=== PATIENT | male | born 1955 | race Caucasian/White ===

== ENCOUNTER 2019-06-20 08:30 | Inpatient (IN) | payer MEDICAID ==
[~2019-06-20] VITALS: Ht 167.6 cm; Wt 87.1 kg
--- NOTE | 2019-06-20 08:30 | NUR ---
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
--- NOTE | 2019-06-20 08:30 | NUR ---
IV LINE ESTABLISHED BLOOD DRAWN AND SENT TO LAB.
--- NOTE | 2019-06-20 08:35 | NUR ---
SEEN AND EXAMINED BY .
[2019-06-20] MEDS ORDERED: ACETAMINOPHEN ES 500 MG TABLET ONE (08:38)
[2019-06-20] MEDS ORDERED: ACETAMINOPHEN ES 500 MG TABLET PO ONE (09:00)
--- NOTE | 2019-06-20 09:00 | NUR ---
CALLED LAB FOR COVID SWAB KIT.
--- NOTE | 2019-06-20 09:02 | NUR ---
ARCHITECTURAL DRAFTSMAN AT BEDSIDE FOR XRAY.
[2019-06-20 09:03] LABS: BASOPHILS # (AUTO) 0.1 /CMM (0.0-0.2); BASOPHILS % (AUTO) 0.5 % (0.0-2.0); EOSINOPHILS % (AUTO) 3.1 % (0.0-6.0); HEMATOCRIT 48 % (39-51); HEMOGLOBIN 16.5 g/dL (13.5-17.5); LYMPHOCYTES # (AUTO) 2.5 /CMM (0.8-4.8); LYMPHOCYTES % (AUTO) 18.2 % (20.0-44.0); MEAN CORPUSCULAR HGB CONC 34 g/dl (31.0-36.0); MEAN CORPUSCULAR VOLUME 91 fL (80-96); MONOCYTES # (AUTO) 0.9 /CMM (0.1-1.30); MONOCYTES % (AUTO) 6.8 % (2.0-12.0); NEUTROPHILS # (AUTO) 9.7 /CMM (1.8-8.9); NEUTROPHILS % (AUTO) 71.4 % (43.0-81.0); PLATELET COUNT (AUTO) 331 /CMM (150-450); RED BLOOD CELL COUNT(AUTO) 5.25 MIL/uL (4.5-6.0); WHITE BLOOD COUNT (AUTO) 13.5 K/uL (4.3-11.0)
[2019-06-20 09:05] LABS: CARBON DIOXIDE 25 mmol/L (21-32); CHLORIDE 96 mmol/L (98-107); CREATININE 1.4 mg/dL (0.6-1.3); GLUCOSE 134 mg/dL (74-106); POTASSIUM 3.6 mmol/L (3.5-5.1); SODIUM SERUM 135 mmol/L (136-145); UREA NITROGEN, BLOOD 9 mg/dL (7-18)
--- NOTE | 2019-06-20 09:13 | NUR ---
COVID SWAB OBTAINED AND SENT TO LAB.
[2019-06-20 09:14] LABS: ABG BASE EXCESS 0.1 mmol/L; ABG OXYGEN SATURATION 97.4 % (92.0-98.5); ABG PCO2 23.5 mmHg (35.0-45.0); ABG PH 7.553 (7.350-7.450); ABG PO2 91.7 mmHg (75.0-100.0); AaDO2 166.5 mmHg; COHb 0.8 % (0.5-1.5); MetHb 0.3 % (0.0-1.5); O2Hb 96.3 % (94.0-97.0); SITE, ABG Right Radial; VENT MODE, BG 5L NASAL CANULA
[2019-06-20 09:16] LABS: ALANINE AMINOTRANSFERASE 76 U/L (12-78); ALBUMIN 3.2 g/dL (3.4-5.0); ALKALINE PHOSPHATASE 102 U/L (46-116); ASPARTATE AMINOTRANSFERASE 57 U/L (15-37); BILIRUBIN,TOTAL 0.6 mg/dL (0.2-1.0); CALCIUM, SERUM 8.8 mg/dL (8.5-10.1); TOTAL PROTEIN, SERUM 7.9 g/dL (6.4-8.2)
--- NOTE | 2019-06-20 10:04 | NUR ---
SUBMITTED MOVE SHEET AND CALLED FOR TELE BED.
[2019-06-20 10:06] LABS: CREATINE KINASE, TOTAL 236 U/L (39-308); FERRITIN 835 ng/mL (8-388)
[2019-06-20 10:07] LABS: C-REACTIVE PROTEIN 6.2 mg/dL (0.0-0.9)
[2019-06-20] MEDS ORDERED: AZITHROMYCIN 500 MG VIAL ONE (10:23)
[2019-06-20] MEDS ORDERED: CEFTRIAXONE 1GM BAG (ER ONLY) 50 ML IV ONE (10:23)
[2019-06-20] MEDS ORDERED: AZITHROMYCIN 500 MG in IV D5W 250 ML IV ONE (10:30)
[2019-06-20] MEDS ORDERED: CEFTRIAXONE 1GM BAG (ER ONLY) 1 GM/50 ML PIGGYBACK IV ONE (10:30)
--- NOTE | 2019-06-20 11:19 | NUR ---
Pt assigned Tele room 101
--- NOTE | 2019-06-20 11:47 | NUR ---
REPORT GIVEN TO YADI SKAGGS FOR KT.
[2019-06-20 12:00] VITALS: BP 135/84
[2019-06-20 12:10] LABS: BILIRUBIN,DIRECT 0.1 mg/dL (0.0-0.2)
[2019-06-20] MEDS ORDERED: ONDANSETRON HCL/PF 4 MG/2 ML VIAL IV PRN (14:00)
[2019-06-20 16:00] VITALS: BP_SYST 114; BP_SYST 140; BP_DIAS 49; BP_DIAS 87
--- NOTE | 2019-06-20 18:56 | NUR ---
Handoff with night team registered nurse. Dontae Crowe RN
--- NOTE | 2019-06-20 19:10 | NUR ---
written report handed to me from charge nurse. patient seen in bed in no apparent distress resp even and unlabored. pt admitted for pna and resp failure. patient currently on ra. spo2 94%. pt ambulator. sami speaking only. axox4. verbalized understanding to call for assistance as needed. r/o covid droplet precautions in place.
[2019-06-20 20:00] VITALS: BP 144/81
[2019-06-20] MEDS: HYDROXYCHLOROQUINE 200 MG TABLET PO SCH (20:21)
[2019-06-20] MEDS: ACETAMINOPHEN 325 MG TABLET PO PRN (20:33)
--- NOTE | 2019-06-20 20:33 | NUR ---
tyelenol administered. patient reports pain in head rated 3/10. tyelenol administered prn per patient request. will cont to monitor.
[2019-06-21] VITALS: BP 124/75
[2019-06-21 04:00] VITALS: BP 122/71
--- NOTE | 2019-06-21 04:30 | NUR ---
tyelenol administered. patient report barney pain rated 3/10 requesting tyelenol. pt had mild fever of 100. 2 degrees last checked. tyelenol adminstered as ordered.
[2019-06-21] MEDS: ACETAMINOPHEN 325 MG TABLET PO PRN (04:31)
--- NOTE | 2019-06-21 06:38 | NUR ---
rn pm closing note. patient seen resting in his bed in no apparent distress with arms closed. resp even and unlabored. denies pain. pt ambulatory to bathroom. pt awakens to voice reports barney is better. bed down locked call light in reach.
[2019-06-21 08:00] VITALS: BP 142/77
[2019-06-21] MEDS: HYDROXYCHLOROQUINE 200 MG TABLET PO SCH ×2 (08:47→17:15)
[2019-06-21] MEDS ORDERED: CEFTRIAXONE 1GM BAG (ER ONLY) 1 GM/50 ML PIGGYBACK IV SCH (09:00)
[2019-06-21] MEDS ORDERED: CEFTRIAXONE 1 G in IV D5W 50 ML IV SCH (10:00)
[2019-06-21] MEDS ORDERED: AZITHROMYCIN 500 MG in IV D5W 250 ML IV SCH (11:00)
--- NOTE | 2019-06-21 11:03 | NUR ---
GREY GOODS TESTER NOTES RECEIVED REPORT FROM JACK GRULLON FOR KT.
[2019-06-21 12:00] VITALS: BP 130/80
[2019-06-21 16:00] VITALS: BP 129/73
[2019-06-21 16:11] LABS: BASOPHILS # (AUTO) 0.1 /CMM (0.0-0.2); BASOPHILS % (AUTO) 0.4 % (0.0-2.0); EOSINOPHILS % (AUTO) 4.9 % (0.0-6.0); HEMATOCRIT 47 % (39-51); HEMOGLOBIN 15.7 g/dL (13.5-17.5); LYMPHOCYTES # (AUTO) 1.8 /CMM (0.8-4.8); MEAN CORPUSCULAR HGB CONC 33 g/dl (31.0-36.0); MEAN CORPUSCULAR VOLUME 92 fL (80-96); MONOCYTES # (AUTO) 0.9 /CMM (0.1-1.30); MONOCYTES % (AUTO) 7.1 % (2.0-12.0); NEUTROPHILS # (AUTO) 8.8 /CMM (1.8-8.9); NEUTROPHILS % (AUTO) 72.6 % (43.0-81.0); PLATELET COUNT (AUTO) 354 /CMM (150-450); RED BLOOD CELL COUNT(AUTO) 5.16 MIL/uL (4.5-6.0); WHITE BLOOD COUNT (AUTO) 12.2 K/uL (4.3-11.0)
[2019-06-21 16:22] LABS: CALCIUM, SERUM 8.6 mg/dL (8.5-10.1); CREATININE 1.1 mg/dL (0.6-1.3); POTASSIUM 4.2 mmol/L (3.5-5.1)
[2019-06-21 16:27] LABS: ALBUMIN 2.9 g/dL (3.4-5.0); BILIRUBIN,TOTAL 0.5 mg/dL (0.2-1.0); MAGNESIUM 2.1 mg/dL (1.8-2.4); PHOSPHORUS 3.2 mg/dL (2.5-4.9); TOTAL PROTEIN, SERUM 7.7 g/dL (6.4-8.2)
--- NOTE | 2019-06-21 19:21 | NUR ---
APPEALS MANAGER CLOSING NOTE PATIENT RESTING COMFORTABLY, AOX 3, ON ROOM AIR, S NIO SOB, RESPIRATION UNLABORED, SINUS RHYTHM, HR 94, DENIES. PAIN, LEFT AC G 18, FLUSHES WLEL, SIT ECLEAR, [place] MIDLINE FLUSHES WELL, SITE CLEAR. PM CARE DONE. ALL NEEDS MET AT THIS TIME. ALL DUE MEDS GIVEN. CALL LIGHT WITHIN REACH. SAFETY MEASURES IN PLACE, ENDORSED TO NEXT SHIFT FOR KT.
--- NOTE | 2019-06-21 19:45 | NUR ---
RN OPENING NOTES RECEIVED REPORT FROM DAYSHIFT YADI DALEY. PER REPORT Pt IS A/OX4, VERBAL, [place] SPEAKING ONLY, ABLE TO MAKE NEEDS KNOWN. FOUND Pt AWAKE, RESTING IN BED. NO S/S OF ACUTE DISTRESS OR SOB NOTED. ON TELE MONITOR WITH SR. PER REPORT Pt HAS BRP/& IS AMBULATORY. IV ACCESS ON LAC #18G, SL. SAFETY MEASURES IN PLACE. BED LOW, LOCKED, HOB ELEVATED, SIDE RAILS UP, CALL LIGHT AND BEDSIDE TABLE WITHIN REACH. WILL CONTINUE TO MONITOR Pt's CONDITION AND SAFETY THROUGHOUT THE NIGHT.
[2019-06-21 20:00] VITALS: BP 118/83
[2019-06-22] VITALS: BP 134/85
--- NOTE | 2019-06-22 01:29 | NUR ---
RN NOTES RECEIVED CALL FROM LAB C/O Yancy LYNN FOR COVID RESULT POSITIVE. PRIMARY RN KEI MADE AWARE
--- NOTE | 2019-06-22 01:39 | NUR ---
RN NOTES COVID TEST RESULTS CAME BACK POSITIVE
[2019-06-22 04:00] VITALS: BP 129/82
--- NOTE | 2019-06-22 04:00 | NUR ---
RN NOTES AYAKA ALLEN HELPED TO TRANSLATE. PER Pt's REQUEST WISHES FOR HIS GIRLFRIEND MINAL TO BE THE DECISION MAKER FOR HIS MEDICAL NEEDS IF NEEDED IN THE FUTURE. Pt GRANTS ALL MEDICAL INFO TO BE SHARED WITH DAUGHTER IF DAUGHTER ASKS FOR ANY UPDATES.
[2019-06-22 06:47] LABS: BASOPHILS # (AUTO) 0.2 /CMM (0.0-0.2); BASOPHILS % (AUTO) 1.3 % (0.0-2.0); EOSINOPHILS % (AUTO) 4.8 % (0.0-6.0); HEMATOCRIT 45 % (39-51); HEMOGLOBIN 14.7 g/dL (13.5-17.5); LYMPHOCYTES # (AUTO) 1.6 /CMM (0.8-4.8); LYMPHOCYTES % (AUTO) 13.5 % (20.0-44.0); MEAN CORPUSCULAR HGB CONC 33 g/dl (31.0-36.0); MEAN CORPUSCULAR VOLUME 91 fL (80-96); MONOCYTES # (AUTO) 0.9 /CMM (0.1-1.30); MONOCYTES % (AUTO) 7.6 % (2.0-12.0); NEUTROPHILS # (AUTO) 8.7 /CMM (1.8-8.9); NEUTROPHILS % (AUTO) 72.8 % (43.0-81.0); PLATELET COUNT (AUTO) 367 /CMM (150-450)
--- NOTE | 2019-06-22 06:50 | NUR ---
RN CLOSING NOTES NO SIGNIFICANT CHANGES IN Pt's CONDITION. ALL NEEDS MET AND ATTENDED TO. Pt IS RESTING COMFORTABLY IN BED. NO S/S OF ACUTE DISTRESS OR SOB NOTED DURING THE NIGHT. SAFETY MEASURES IN PLACE. BED LOW, LOCKED, HOB ELEVATED, SIDE RAILS UP, CALL LIGHT AND BEDSIDE TABLE WITHIN REACH. WILL ENDORSE TO DAYSHIFT RN FOR Pt's KT.
[2019-06-22 07:09] LABS: ALBUMIN 2.6 g/dL (3.4-5.0); BILIRUBIN,TOTAL 0.5 mg/dL (0.2-1.0); CALCIUM, SERUM 8.3 mg/dL (8.5-10.1); MAGNESIUM 2.1 mg/dL (1.8-2.4); PHOSPHORUS 3.8 mg/dL (2.5-4.9); POTASSIUM 3.7 mmol/L (3.5-5.1); TOTAL PROTEIN, SERUM 7.1 g/dL (6.4-8.2)
[2019-06-22 08:00] VITALS: BP 120/76
[2019-06-22] MEDS ORDERED: AZITHROMYCIN 500 MG in IV D5W 250 ML IV SCH (09:30)
[2019-06-22] MEDS: HYDROXYCHLOROQUINE 200 MG TABLET PO SCH (09:46)
[2019-06-22 12:00] VITALS: BP 126/79
[2019-06-22] MEDS ORDERED: HYDR200T81 PO (12:28)
[2019-06-22] MEDS ORDERED: AZIT500T PO (12:28)
[2019-06-22] MEDS ORDERED: POTASSIUM CHLORIDE 20 MEQ TAB.PRT.SR PO SCH (13:00)
--- NOTE | 2019-06-22 14:37 | NUR ---
Due to the pt being positive for COVID at this time, SW placed an Advanced Directive in the pts chart in a flagged position. SW to follow up with the pt.
[2019-06-22 16:00] VITALS: BP 132/85
--- NOTE | 2019-06-22 17:02 | NUR ---
Removal of intact 20 gauge intravenous site from right hand and 18 gauge from left antecubital fosa. Discharge of ambulatory patient with all belongings. A copy of discharge instructions, quarintine instruction, advance directive paperwork, and medication reconciliation provided. Patient verbalizes understanding of the instruction. 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 Dontae Crowe RN
[2019-06-23] MEDS ORDERED: CEFTRIAXONE 1 G in IV D5W 50 ML IV SCH (09:00)
[2019-06-23] MEDS ORDERED: AZITHROMYCIN 500 MG in IV D5W 250 ML IV SCH (09:30)
== END 2019-06-22 17:05 | disposition home or self-care (01) | DRG 871 ==
LOC: ER 08:33 → TELE1 12:07
PROVIDERS: ADMIT Student in an Organized Health Care Education/Training Program; ATTEND Student in an Organized Health Care Education/Training Program
DX: A41.89 Other specified sepsis (principal); J96.01 Acute respiratory failure with hypoxia; U07.1 COVID-19; J12.89 Other viral pneumonia; N17.0 Acute kidney failure with tubular necrosis; E87.4 Mixed disorder of acid-base balance; E87.1 Hypo-osmolality and hyponatremia; E87.2 Acidosis; E44.0 Moderate protein-calorie malnutrition
CPT/HCPCS: 36415; 36600; 71045-TC; 80053-TC; 82248-TC; 82550-TC; 82728-TC; 82803-TC; 83605-TC; 83615-TC; 83735-TC; 84100-TC; 85025-TC; 86140-TC; 87040-TC; 87081-TC; G0378; J0456; J0696; J7030; J7050; J7060

== ENCOUNTER 2019-08-07 09:51 | Emergency (ER) | payer MEDICAID ==
[~2019-08-07] VITALS: Ht 172.7 cm; Wt 81.6 kg
[~2019-08-07 09:51] MED LIST: AZIT500T PO; HYDR200T81 PO
--- NOTE | 2019-08-07 10:20 | NUR ---
patient came in to the er for covid 19 retesting. On room air, breathing evenly and unlabored. denies any symptoms. Kept comfortable, will continue to monitor accordingly.
[2019-08-07 10:26] VITALS: BP 145/81
--- NOTE | 2019-08-07 10:26 | NUR ---
Patient discharged to home in stable condition. Written and verbal after care instructions given. Patient verbalizes understanding of instruction.
--- NOTE | 2019-08-08 00:20 | NUR ---
LAB CALLED REGARDING COVID RESULT (NEGATIVE)
== END 2019-08-07 10:26 | disposition home or self-care (01) ==
LOC: ER 09:55
DX: Z09 Encounter for follow-up examination after completed treatment for conditions other than malignant neoplasm (principal); Z86.19 Personal history of other infectious and parasitic diseases
CPT/HCPCS: 99283; C9803; U0003